=== PATIENT | male | born 1970 | race Caucasian/White ===

== ENCOUNTER → 2024-10-08 15:20 | Outpatient (CLI) | payer OTHER, SELFPAY ==
--- NOTE | 2024-10-08 15:26 | DI.RAD.S_ITS ---
PROCEDURE: XR CHEST 2V INDICATIONS: SUBACUTE COUGH TECHNIQUE: 2 views of the chest were acquired. COMPARISON: None. FINDINGS: Surgical changes and devices: None. Lungs and pleura: Lungs are clear. No pleural effusions or pneumothorax. Mediastinum: Mediastinal contours are normal. Heart size is normal. Bones and chest wall: No suspicious bony abnormalities. Soft tissues appear unremarkable. IMPRESSION: No acute pulmonary process. Dictated by: Rosana Montanez M.D. on 10/09/2024 at 13:02 Approved by: Rosana Montanez M.D. on 10/09/2024 at 13:02
== END ==
PROVIDERS: PCP Family Medicine; Referring Provider Family Medicine; Visit Provider Family Medicine
DX: R05.2 Subacute cough (principal)
CPT/HCPCS: 71046

== ENCOUNTER → 2024-11-24 09:13 | Outpatient (CLI) | payer OTHER, SELFPAY ==
--- NOTE | 2024-11-24 09:14 | DI.ECHO.S_ITS ---
[place] +---------+ Hospital : : [address] : : [place] : : [id number] : : Phone: [phone] Echocardiogram Report + + :Name: DANIEL WORTHINGTON Study Date: 11/24/2024 Height: 76 in : :Hospital ReadingLocation: Weight: 235 lb : : Gender: Male BSA: 2.4 m2 : :: 1970 Age: 54 yrs BP: 126/85 mmHg: :Reason For Study: CHEST PAIN : :Ordering Physician: BREE, : :AMBER Performed By: Zenaida Brito : :Referring: AMBER GIRON : + + Interpretation Summary The left ventricle is normal in size and wall thickness. The ejection fraction is estimated to be 55-60%. Left ventricular wall motion is normal. Diastolic parameters suggest probable normal left ventricular diastolic function and normal filling pressures. The right ventricle is mildly dilated. The right ventricular systolic function is normal. Pulmonary artery pressures cannot be estimated because of the lack of a measurable TR jet velocity but the IVC suggests a CVP of around 3 mmHg. The left atrial size is normal. There is mild mitral regurgitation. The aortic arch is mildly enlarged. Procedure: A two-dimensional transthoracic echocardiogram with color flow and Doppler was performed. The study quality was technically adequate. There is no prior echocardiogram noted for this patient. The patient was in sinus rhythm with heart rates between 55-77 bpm during the exam. Left Ventricle: The left ventricle is normal in size and wall thickness. The ejection fraction is estimated to be 55-60%. Left ventricular wall motion is normal. Diastolic parameters suggest probable normal left ventricular diastolic function and normal filling pressures. Right Ventricle: The right ventricle is mildly dilated. The right ventricular systolic function is normal. Atria: The left atrial size is normal. Right atrial size is normal. There is no Doppler evidence for an interatrial shunt. Mitral Valve: The mitral valve leaflets appear to open well. There is mild mitral regurgitation. Aortic Valve: The aortic valve is trileaflet. The aortic valve opens well. There is no aortic valve stenosis. No aortic regurgitation is present. Tricuspid Valve: The tricuspid valve is normal. There is mild tricuspid regurgitation. Pulmonary artery pressures cannot be estimated because of the lack of a measurable TR jet velocity but the IVC suggests a CVP of around 3 mmHg. Pulmonic Valve: The pulmonic valve leaflets are thin and pliable; valve motion is normal. There is no pulmonic valvular regurgitation. Great Vessels: The aortic root is normal size. The dimensions of the ascending aorta are normal. The aortic arch is mildly enlarged. The IVC is of normal diameter and collapses greater than 50% with a sniff. This suggests a low right atrial pressure of 3 mm Hg. Pericardium/ Pleura There is no pericardial effusion. There is no pleural effusion. MMode/2D Measurements & Calculations LVIDd: 5.1 cm LVOT diam: 2.2 cm LVIDs: 3.4 cm Ao root diam: 3.4 cm FS: 33.2 % asc Aorta Diam: 3.3 cm EPSS: 0.49 cm Ao Arch Diam (Prox Trans): 3.5 cm IVSd: 0.97 cm LVPWd: 0.88 cm LV christian. diameter/BSA (cm/m^2): 2.2 LV sys. diameter/BSA (cm/m^2): 1.4 LA A2 area: 15.2 cm2 RA long axis: 4.1 cm LA A4 area: 13.2 cm2 RA area: 13.4 cm2 LA length (vol): 4.9 cm RA vol: 37.5 ml LA vol: 34.6 ml RA : 15.8 ml/m2 LA vol index: 14.6 ml/m2 IVC diam: 1.3 cm RVD1 (basal): 4.1 cm RVD2 (mid): 4.0 cm TAPSE: 1.8 cm Doppler Measurements & Calculations Ao V2 max: 115.8 cm/sec LVOT Max Edward: 71.3 cm/sec Ao V2 mean: 82.4 cm/sec LV V1 max P.0 mmHg Ao max P.4 mmHg LV V1 VTI: 13.8 cm Ao mean P.0 mmHg NADINE(I,D): 2.4 cm2 Ao V2 VTI: 21.8 cm NADINE(V,D): 2.3 cm2 sev ratio: 0.63 NADINE indexed to BSA (cm^2/m^2): 1.0 MV E max edward: 53.9 cm/sec PA V2 max: 81.3 cm/sec MV A max edward: 48.6 cm/sec PA V2 mean: 54.4 cm/sec MV E/A: 1.1 PA mean P.4 mmHg Med Peak E' Edward: 7.7 cm/sec PA pr(Accel): 27.6 mmHg E/E' med: 7.0 Lat Peak E' Edward: 10.7 cm/sec E/E' lat: 5.1 E/e' average: 6.0 MV dec time: 0.15 sec SV(LVOT): 52.1 ml Reading Physician:11:28 PM
== END ==
LOC: ECHO 09:14
PROVIDERS: PCP Family Medicine; Referring Provider Family Medicine; Visit Provider Family Medicine
DX: I08.1 Rheumatic disorders of both mitral and tricuspid valves (principal); I45.10 Unspecified right bundle-branch block; R07.9 Chest pain, unspecified
CPT/HCPCS: 93306

== ENCOUNTER → 2024-11-24 10:56 | Outpatient (CLI) | payer OTHER, SELFPAY | LOC: RESP 10:56 | PROVIDERS: PCP Family Medicine; Referring Provider Family Medicine; Visit Provider Family Medicine | DX: J45.20 Mild intermittent asthma, uncomplicated (principal); J45.31 Mild persistent asthma with (acute) exacerbation; R05.3 Chronic cough; R94.2 Abnormal results of pulmonary function studies | CPT/HCPCS: 93306; 94060; 94726; 94729 ==